=== PATIENT | female | born 2000 | race Caucasian/White ===

== ENCOUNTER 2020-12-03 13:45 | Outpatient (CLI) | payer MEDICAID, SELFPAY ==
[2020-12-03 14:00] VITALS: BP 121/85; PULSE 84
[2020-12-03 14:04] VITALS: TEMP 36.3
[2020-12-03 14:05] VITALS: BMI 24.3
[2020-12-03 14:15] VITALS: BP 117/79; PULSE 75
[2020-12-03 14:31] VITALS: BP 118/82; PULSE 70
[2020-12-03 14:41] VITALS: BP 118/82; PULSE 70; RESP 18; TEMP 36.3
[2020-12-04] VITALS (13 sets, daily range): BP systolic 98–127; BP diastolic 55–79; PULSE 50–78; TEMP 36.2–37
[2020-12-05] VITALS (33 sets, daily range): BP systolic 91–139; BP diastolic 50–87; PULSE 55–107; RESP 15–16; TEMP 36.2–36.7
[2020-12-06 04:00] VITALS: PULSE 56; RESP 16; TEMP 36.1
[2020-12-06 04:13] VITALS: BP 106/59; PULSE 56; TEMP 36.1
[2020-12-06 09:00] VITALS: BP 125/80; PULSE 86; RESP 17; TEMP 36.4
== END 2020-12-03 14:43 | disposition home or self-care (01) ==
LOC: OPOB 13:46 → OBGYN 12-04 08:31
PROVIDERS: PCP Family Medicine; Visit Provider Family Medicine
DX: O36.8190 Decreased fetal movements, unspecified trimester, not applicable or unspecified (principal); Z3A.00 Weeks of gestation of pregnancy not specified
CPT/HCPCS: 59025; 99211

== ENCOUNTER 2020-12-04 07:57 | Inpatient (IN) | payer MEDICAID, SELFPAY ==
[2020-12-04 08:18] VITALS: BP 118/78; PULSE 74; TEMP 36.3
[2020-12-04 09:42] VITALS: BMI 24.3
[2020-12-04 10:03] LABS: Basophils % 0.1 %; Eosinophils % 0.4 %; Hematocrit 34.3 % (37.0-47.0); Hemoglobin 11.9 g/dL (11.5-15.3); Lymphocytes # 1.4 10^3/uL (1.5-6.5); Lymphocytes % 18.8 %; Mean Corpuscular HGB Conc 34.7 g/dL (30.0-36.0); Mean Corpuscular Hemoglobin 30.6 pg (28.0-34.0); Mean Corpuscular Volume 88.2 fL (81-99); Mean Platelet Volume 11.4 fL (7.4-10.4); Monocytes # 0.5 10^3/uL (0.2-0.9); Monocytes % 7.3 %; Neutrophils # 5.23 10^3/uL (1.8-8.0); Nucleated Red Blood Cells % 0 %; Platelet Count 253 10^3/cmm (130-400); Red Blood Count 3.89 10^6/uL (4.1-5.3); Red Cell Distribution Width 13.4 % (12.1-15.1); White Blood Count 7.2 10^3/uL (4.5-13.0)
[2020-12-04] MEDS: miSOPROStol 100 mcg tablet 25 MCG VAGINAL ×3 (10:04→19:30)
[2020-12-04] MEDS: promethazine 25 mg/mL SDV 1 mL IM (21:35)
[2020-12-04] MEDS: morphine 4 mg/mL SDV 1 mL 8 MG IM (21:36)
[2020-12-05 01:48] VITALS: RESP 16
--- NOTE | 2020-12-05 01:50 | PM.DELIVERY ---
Delivery Note: Date of delivery: December 05, 2020 This 20-year-old 1 now para 1 female with an EDC of 11/29/2020 was admitted on the day of admission for misoprostol cervical ripening for postdates . She was given misoprostol 25 mcg x 3 doses. Sometime after the third dose the had a variable baseline sometimes in the 130s and sometimes down to 110's. That prompted fluid boluses followed by oxygen therapy. The oxygen seemed to improve things but this physician came in and evaluated. At that time she was found to be approximately 5 cm dilated and 0 station. She underwent artificial rupture membranes with a moderate amount of thick meconium stained fluid obtained. She very rapidly dilated to complete cervical dilatation and delivered by spontaneous vaginal delivery healthy, viable female at 11 13. Upon delivery the head the mouth and nose were suctioned followed by delivery of the remainder of the infant. There was no nuchal cord. After approximately 1 minute the maternal grandmother cut the infant cord. The umbilical cord had 3 blood vessels. The was suctioned more after delivery prior to laying on mother's abdomen. The infant was a little blue and stunned and therefore was brought over to the warmer where more stimulation was made followed by suctioning of approximately 8 mL of meconium fluid and blow-by oxygen. The was crying immediately after . Apgars were 7 and 9 at 1 and 5 minutes respectively. The weighed 6 pounds 7 ounces. There was a midline second-degree episiotomy with layered surgical closure using local anesthesia for the episiotomy and repair. Estimated blood loss approximately 187 mL. Pre-Delivery Course: This patient was followed by this physician beginning early in her and follow through the course without problems. Maternal blood type was O- with antibody screen negative. Hepatitis B, hepatitis C, RPR were negative. Rubella was immune and group B strep was negative as was Covid testing. The patient went postdates and discussion was made with the patient in the office regarding benefits and risks of misoprostol cervical ripening. She was admitted for cervical ripening for induction on the day of admission. Delivery: Spontaneous vaginal delivery. Post-Delivery Status: Patient will be followed for routine care. We will change orders as necessary. A&P Assessment and plan (1) Normal spontaneous vaginal delivery: Patient is doing well at this time. She will be followed with routine orders. Status: Acute Coding Level of Care Code Acute Department Coordinator for [facility] Fwd Diagnoses Normal spontaneous vaginal delivery O80
[2020-12-05] MEDS: lanolin oint 7 gm 1 APPLIC TOPICAL (04:28)
[2020-12-05] MEDS: benzocaine-menthol 78 gm Canister 1 SPRAY TOPICAL (04:30)
[2020-12-05] MEDS: prenatal vitamin Capsule 1 CAP PO (09:24)
[2020-12-05] MEDS: ibuprofen 800 mg tablet PO ×3 (09:24→22:16)
[2020-12-05] MEDS: docusate sodium 100 mg Capsule PO ×2 (09:24→17:12)
[2020-12-05 11:38] VITALS: BP 119/72; PULSE 70; RESP 15; TEMP 36.7
[2020-12-05 14:25] LABS: Hematocrit 30.9 % (37.0-47.0); Hemoglobin 10.3 g/dL (11.5-15.3); Mean Corpuscular HGB Conc 33.3 g/dL (30.0-36.0); Mean Corpuscular Hemoglobin 29.9 pg (28.0-34.0); Mean Corpuscular Volume 89.6 fL (81-99); Mean Platelet Volume 11.6 fL (7.4-10.4); Platelet Count 230 10^3/cmm (130-400); Red Blood Count 3.45 10^6/uL (4.1-5.3); Red Cell Distribution Width 13.4 % (12.1-15.1); White Blood Count 11.3 10^3/uL (4.5-13.0)
[2020-12-05 15:50] VITALS: BP 122/79; PULSE 72; RESP 16; TEMP 36.6
[2020-12-05 19:36] VITALS: BP 126/58; PULSE 65; RESP 16; TEMP 36.7
[2020-12-05 21:58] VITALS: BP 115/65; PULSE 56; RESP 15; TEMP 36.7
[2020-12-06 04:00] VITALS: BP 106/59; PULSE 56; RESP 16; TEMP 36.1
--- NOTE | 2020-12-06 07:25 | PM.OBGYDC ---
Discharge Providers BISCUIT PACKER Date of Admission: 12/04/20 07:57 Date of Discharge: 12/06/20 Attending Provider at Admission: Anurag Smith MD Attending Provider at Discharge: Anurag Smith MD Primary Care Provider: Vicki Villarreal DO Diagnoses at Discharge Discharge Diagnosis (1) Normal spontaneous vaginal delivery: Status: Acute Reason for Visit Reason for Visit: Induction Information Peripartum Data: Infant Delivery Method: Vaginal Physical Exam Narrative: EXAM NARRATIVE: Patient has done well throughout the day yesterday with just mild lochia and no other problems. She did receive RhoGam as infant's blood type was O+. Const: COMMON NORMALS: no acute distress, average body habitus and healthy appearing HENMT: COMMON NORMALS: moist oral mucous membranes Resp: COMMON NORMALS: normal respiratory effort, No retractions, No use of accessory muscles and clear to auscultation bilaterally AUSCULTATION: clear to auscultation bilaterally Cardio: COMMON NORMALS: regular rate and regular rhythm RATE: regular rate RHYTHM: regular rhythm GI: COMMON NORMALS: Normal to inspection, nondistended, normoactive bowel sounds present, Soft to palpation (Fundus is firm.) and non-tender PALPATION: Yes Soft to palpation (Fundus is firm.) Extremity: COMMON NORMALS: normal to inspection, full ROM, no calf tenderness and no pedal edema Neuro: COMMON NORMALS: moves all extremities, no focal motor deficits and no sensory deficits noted Psych: COMMON NORMALS: mental status grossly normal, Normal thought process present, cooperative and normal affect THOUGHT PROCESS: Normal thought process present Discharge Data Data Completed and Pending: Pending at discharge Category Date Time Status Complete Crossmat ch Routine Lab 12/04/20 09:00 Results Rho D Immune Glob ulin Routine Lab 12/04/20 09:00 Results Type and Screen R outine Lab 12/04/20 09:00 Results Labs from last 24 hours 12/05/20 12/05/20 12/04/20 13:35 13:35 09:00 WBC 11.3 RBC 3.45 L Hgb 10.3 L Hct 30.9 L MCV 89.6 MCH 29.9 MCHC 33.3 RDW 13.4 Plt Count 230 MPV 11.6 H Blood Type O Negative Rho(D) Type Negative Antibody Screen Negative Screen Negative Vitals: Last Vital Signs Temp 96.9 F L 12/06/20 04:00 Pulse 56 L 12/06/20 04:00 Resp 16 12/06/20 04:00 BP 106/59 12/06/20 04:00 Discharge Plan Discharge Patient Disposition: Home Condition: Stable Prescriptions: New ibuprofen 800 mg Tablet 800 mg PO TID Qty: 90 RF: 2 docusate sodium [DOK] 100 mg Capsule 100 mg PO BID Qty: 60 RF: 2 Continued + Iron 1 mg Tablet PO RF: 0 Discharge Orders: Discharge Order (Routine); Ordered 12/06/20 Ordered By: Anurag Smith Referrals: Anurag Smith MD [Physician] - 6 Weeks Discharge Diet: Usual diet Discharge Activity: Resume usual activity Discharge Attestations BISCUIT PACKER Time Spent in Discharge Care*: less than 30 min Specific Discharge Activities: Specific discharge activities: educating patient, documenting/other paperwork and evaluating patient/reviewing data Coding Level of Care Code Acute Medical Care Evaluation Specialist for [facility] Fwd Diagnoses Normal spontaneous vaginal delivery O80
[2020-12-06 09:00] VITALS: BP 125/80; PULSE 86; RESP 17; TEMP 36.4
[2020-12-06 09:01] VITALS: BP 125/80; PULSE 86; RESP 16; TEMP 36.4
== END 2020-12-06 10:10 | disposition home or self-care (01) | DRG 807 ==
PROVIDERS: Admitting Provider Family Medicine; PCP Family Medicine; Visit Provider Family Medicine
DX: O48.0 Post-term pregnancy (principal); Z37.0 Single live birth; Z3A.40 40 weeks gestation of pregnancy; O77.0 Labor and delivery complicated by meconium in amniotic fluid; O70.1 Second degree perineal laceration during delivery
CPT/HCPCS: 12345; 36415; 36430; 59409; 85025; 85027; 85460; 86850; 86900; 90384; 96372; 98960; J2270; J2550

== ENCOUNTER → 2022-08-25 08:25 | Outpatient (BNVA) | payer MEDICAID, SELFPAY | PROVIDERS: PCP Family Medicine; Visit Provider Nurse Practitioner Women's Health | DX: Z32.00 Encounter for pregnancy test, result unknown (principal); N92.6 Irregular menstruation, unspecified | CPT/HCPCS: 81025 ==

== ENCOUNTER → 2022-09-21 10:43 | Outpatient (BNVA) | payer MEDICAID, SELFPAY | PROVIDERS: PCP Family Medicine; Visit Provider Obstetrics & Gynecology | DX: Z36.87 Encounter for antenatal screening for uncertain dates (principal) | CPT/HCPCS: 76801 ==

== ENCOUNTER → 2022-09-25 09:00 | Outpatient (BNVA) | payer MEDICAID, SELFPAY | PROVIDERS: PCP Family Medicine; Visit Provider Obstetrics & Gynecology | DX: Z34.90 Encounter for supervision of normal pregnancy, unspecified, unspecified trimester (principal) | CPT/HCPCS: 80307; 81000; 85025; 86592; 86762; 86803; 86850; 86900; 87086; 87340; 87806 ==

== ENCOUNTER → 2022-10-12 10:50 | Outpatient (BNVA) | payer MEDICAID, SELFPAY | PROVIDERS: PCP Family Medicine; Visit Provider Obstetrics & Gynecology | DX: Z34.91 Encounter for supervision of normal pregnancy, unspecified, first trimester (principal) | CPT/HCPCS: 81000; 87491; 87591; 88175 ==

== ENCOUNTER → 2022-11-30 14:10 | Outpatient (BNVA) | payer MEDICAID, SELFPAY | PROVIDERS: PCP Family Medicine; Visit Provider Obstetrics & Gynecology | DX: Z34.00 Encounter for supervision of normal first pregnancy, unspecified trimester (principal) | CPT/HCPCS: 76805 ==

== ENCOUNTER → 2022-12-04 13:45 | Outpatient (BNVA) | payer MEDICAID, SELFPAY | PROVIDERS: PCP Family Medicine; Visit Provider Obstetrics & Gynecology | DX: Z34.90 Encounter for supervision of normal pregnancy, unspecified, unspecified trimester (principal) | CPT/HCPCS: 81000 ==

== ENCOUNTER → 2023-01-01 11:08 | Outpatient (BNVA) | payer MEDICAID, SELFPAY | PROVIDERS: PCP Family Medicine; Visit Provider Nurse Practitioner Women's Health | DX: O26.899 Other specified pregnancy related conditions, unspecified trimester (principal); Z67.91 Unspecified blood type, Rh negative | CPT/HCPCS: 81000; 82950 ==

== ENCOUNTER → 2023-01-13 15:25 | Outpatient (BNVA) | payer MEDICAID, SELFPAY | PROVIDERS: PCP Family Medicine; Visit Provider Obstetrics & Gynecology | DX: Z34.92 Encounter for supervision of normal pregnancy, unspecified, second trimester (principal) | CPT/HCPCS: 76816 ==

== ENCOUNTER → 2023-01-29 09:26 | Outpatient (BNVA) | payer MEDICAID, SELFPAY | PROVIDERS: PCP Family Medicine; Visit Provider Obstetrics & Gynecology | DX: Z34.90 Encounter for supervision of normal pregnancy, unspecified, unspecified trimester (principal) | CPT/HCPCS: 81000 ==

== ENCOUNTER → 2023-02-03 07:51 | Outpatient (BNVA) | payer MEDICAID, SELFPAY | PROVIDERS: PCP Family Medicine; Visit Provider Obstetrics & Gynecology | DX: O26.899 Other specified pregnancy related conditions, unspecified trimester (principal); Z67.91 Unspecified blood type, Rh negative | CPT/HCPCS: 86850 ==

== ENCOUNTER → 2023-02-12 10:09 | Outpatient (BNVA) | payer MEDICAID, SELFPAY | PROVIDERS: PCP Family Medicine; Visit Provider Obstetrics & Gynecology | DX: Z34.90 Encounter for supervision of normal pregnancy, unspecified, unspecified trimester (principal); R82.90 Unspecified abnormal findings in urine | CPT/HCPCS: 81000; 87086 ==

== ENCOUNTER → 2023-02-18 09:21 | Outpatient (BNVA) | payer MEDICAID, SELFPAY | PROVIDERS: PCP Family Medicine; Visit Provider Obstetrics & Gynecology | DX: Z34.90 Encounter for supervision of normal pregnancy, unspecified, unspecified trimester (principal) | CPT/HCPCS: 76816 ==

== ENCOUNTER → 2023-02-26 11:14 | Outpatient (BNVA) | payer MEDICAID, SELFPAY | PROVIDERS: PCP Family Medicine; Visit Provider Obstetrics & Gynecology | DX: Z34.90 Encounter for supervision of normal pregnancy, unspecified, unspecified trimester (principal) | CPT/HCPCS: 81000 ==

== ENCOUNTER → 2023-03-11 09:46 | Outpatient (BNVA) | payer MEDICAID, SELFPAY | PROVIDERS: PCP Family Medicine; Visit Provider Obstetrics & Gynecology | DX: Z34.90 Encounter for supervision of normal pregnancy, unspecified, unspecified trimester (principal) | CPT/HCPCS: 81000 ==

== ENCOUNTER → 2023-03-26 10:55 | Outpatient (BNVA) | payer MEDICAID, SELFPAY | PROVIDERS: PCP Family Medicine; Visit Provider Obstetrics & Gynecology | DX: Z34.90 Encounter for supervision of normal pregnancy, unspecified, unspecified trimester (principal) | CPT/HCPCS: 81000; 87081 ==

== ENCOUNTER 2023-04-01 07:53 | Outpatient (CLI) | payer MEDICAID, SELFPAY ==
--- NOTE | 2023-04-01 08:00 | US_ITS ---
WS: [id number] ULTRASOUND OB LIMITED TECHNIQUE: Limited ultrasound examination of the fetus. CLINICAL INFORMATION: Z34.90 - Encounter for supervision of normal , u... COMPARISON: Ultrasound February 18, 2023 FINDINGS: Closed cervix measures 3.2 cm Single interuterine gestation. presentation is vertex Placental location is anterior. Placenta grade: 2 heart rate 150 BPM. Anatomy: BDP: 9.1 cm = 37w0d HC: 32.2 cm = 36w2d AC: 31.6 cm = 35w4d FEMUR LENGTH: 7.1 cm = 36w1d Estimated weight: 2811 g; 6 lbs. 3 oz. Weight at the 45th percentile based on gestational age EGA by ultrasound: 36w2d HOWIE by ultrasound: 04/27/2023 US/US OB limited [id number] IMPRESSION: 1. Cervix long and closed measuring 3.2 cm 2. Vertex presentation with anterior placenta. 3. weight 6 lbs. 3 oz. at the 45th percentile based on gestational age 4. BPD today at the 67th percentile and head circumference at the 13th percent ile decreased compared to previous. Previously BPD greater than 98th percentile and head circumference at the 85th percentile. 5. Abdominal circumference at the 23rd percentile today compared to 66th perce ntile previous
== END 2023-04-01 07:54 | disposition home or self-care (01) ==
LOC: RAD 07:58
PROVIDERS: PCP Family Medicine; Visit Provider Obstetrics & Gynecology
DX: Z34.90 Encounter for supervision of normal pregnancy, unspecified, unspecified trimester (principal)
CPT/HCPCS: 76815; 81000; 87081

== ENCOUNTER → 2023-04-02 11:24 | Outpatient (BNVA) | payer MEDICAID, SELFPAY | PROVIDERS: PCP Family Medicine; Visit Provider Obstetrics & Gynecology | DX: Z34.90 Encounter for supervision of normal pregnancy, unspecified, unspecified trimester (principal) | CPT/HCPCS: 81000 ==

== ENCOUNTER → 2023-04-09 11:34 | Outpatient (BNVA) | payer MEDICAID, SELFPAY | PROVIDERS: PCP Family Medicine; Visit Provider Obstetrics & Gynecology | DX: Z34.90 Encounter for supervision of normal pregnancy, unspecified, unspecified trimester (principal) | CPT/HCPCS: 81000 ==

== ENCOUNTER → 2023-04-13 15:27 | Outpatient (BNVA) | payer MEDICAID, SELFPAY | PROVIDERS: PCP Family Medicine; Visit Provider Obstetrics & Gynecology | DX: Z34.90 Encounter for supervision of normal pregnancy, unspecified, unspecified trimester (principal) | CPT/HCPCS: 81000 ==

== ENCOUNTER 2023-04-16 21:09 | Inpatient (IN) | payer MEDICAID, SELFPAY ==
[2023-04-16 20:53] VITALS: BMI 23.6
[2023-04-16 21:09] VITALS: RESP 18
[2023-04-16] MEDS: miSOPROStol 100 mcg tablet 25 MCG VAGINAL (21:55)
[2023-04-16 22:39] VITALS: BP 101/65; PULSE 99
[2023-04-16 23:07] LABS: Basophils % 0.1 %; Eosinophils % 0.4 %; Hematocrit 32.6 % (37.0-47.0); Hemoglobin 10.9 g/dL (11.5-15.3); Lymphocytes # 1.7 10^3/uL (0.8-4.8); Lymphocytes % 20.6 %; Mean Corpuscular HGB Conc 33.4 g/dL (30.0-36.0); Mean Corpuscular Hemoglobin 29.3 pg (28.0-34.0); Mean Corpuscular Volume 87.6 fl (81-99); Mean Platelet Volume 11.6 fL (7.4-10.4); Monocytes # 0.5 10^3/uL (0.2-0.9); Monocytes % 5.6 %; Neutrophils # 6.07 10^3/uL (1.8-7.7); Neutrophils % 72.9 %; Nucleated Red Blood Cells % 0 %; Platelet Count 204 10^3/cmm (130-400); Red Blood Count 3.72 10^6/uL (4.1-5.3); Red Cell Distribution Width 14.4 % (12.1-15.1); White Blood Count 8.3 10^3/uL (4.0-10.0)
[2023-04-16 23:41] VITALS: BP 110/69; PULSE 71
[2023-04-17] VITALS (87 sets, daily range): BP systolic 90–128; BP diastolic 50–75; PULSE 47–88; RESP 16–17; TEMP 35.8–36.7; O2SAT 89–100
[2023-04-17] MEDS: miSOPROStol 100 mcg tablet 25 MCG VAGINAL (02:03)
[2023-04-17] MEDS: dextrose 5%-lactated ringers 1,000 ML 125 ML IV ×3 (13:00→23:56)
[2023-04-17] MEDS: fentaNYL 50 mcg/mL INJ 2mL IVP ×2 (17:01→18:24)
[2023-04-17] MEDS: lactated ringers 1,000 ML 999 ML IV (18:20)
--- NOTE | 2023-04-17 19:52 | ANES.PREANE2 ---
Pre-Anesthetic Assessment Height/Weight: Height 1.75 m Weight 72.575 kg Temp Pulse Resp BP Pulse Ox O2 Del Method 96.4 F L 60 17 102/56 100 Room Air 04/17/23 19:23 04/17/23 19:47 04/17/23 18:24 04/17/23 19:47 04/17/23 19:45 04/16/23 20:53 Preop Diagnosis: labor epidural Familial anesthetic complications: none Was Beta [place] taken within 24 hours: N/A Was Clonidine taken within 24 hours: N/A Last Intake: 12:00 Social No alcohol and No tobacco Exam alert, oriented x 3, clear to auscultation bilaterally and regular rate & rhythm Airway Submandibular: within normal limits Cervical ROM: within normal limits Mallampati: Class II Dentition: full Pulmonary None reported CV/HEM None reported None reported Hepatic None reported GI None reported Metabolic None reported Musc/skel None reported Neuropsych None reported Anesthetic Plan ASA status: 2 Anesthesia: Regional (specify below) (epidural) Risk of > 500 ml blood loss (7ml/kg in children): Yes, adequate IV access and fluids planned Medications/Allergies Home Medications Medication Instructions Recorded Confirmed Last Taken Type prenat.vits,masoud,jsa-[id number] 1 tab PO DAILY 08/25/22 04/13/23 Unknown History Allergies Allergy/AdvReac Type Severity Reaction Status Date / Time No Known Allergies Allergy Verified 04/13/23 15:34 Current Medications Generic Name Dose Route Start Last Admin Trade Name Freq PRN Reason Stop Dose Admin Fentanyl 25 - 100 mcg 04/16/23 21:09 04/17/23 18:24 Fentanyl 50 Mcg/Ml Inj 2ml IVP 50 mcg Q1H PRN Administration SEVERE PAIN Dextrose/Lactated Ringer's 1,000 mls @ 125 mls/hr 04/16/23 21:09 04/17/23 19:22 Dextrose 5%-Lactated Ringers IV 125 mls/hr .Q8H PRN Administration per label comments Oxytocin 30 unit in 500 mls @ 1 mls/hr 04/17/23 12:15 04/17/23 13:08 Pitocin IV Not Given .Q24H GENOVEVA Protocol 1 MILLIUNIT/MIN Oxytocin 30 unit/ Sodium 503 mls @ 1 mls/hr 04/17/23 12:15 04/17/23 18:23 Chloride IV 8 mls/hr .Q24H GENOVEVA 8 mls/hr Titration Protocol Lactated Ringer's 1,000 mls @ 999 mls/hr 04/17/23 17:11 04/17/23 19:25 Lactated Ringers IV Infused .Q1H1M PRN Infusion See label comments Ropivacaine 100 mg in 50 mls @ 10 mls/hr 04/17/23 17:15 04/17/23 19:45 Naropin Syringe EPIDURAL 13 mls/hr .Q5H GENOVEVA Administration PFSH Anesthesia Medical History No pertinent past medical history neghx: htn,dm,thyroid,dvt/pe PCP: [facility] Surgical History No pertinent past surgical history Family History Mother Cervical cancer dx age 22-23 Denies family history of Colon cancer Ovarian cancer Diabetes Heart disease Hypercholesteremia Breast cancer Hypertension Uterine cancer Thyroid disease Stroke Female Reproductive History : 2 Data Anesthesia 04/16/23 21:30 Short CBC 04/16/23 Range/Units 21:30 WBC 8.3 (4.0-10.0) 10^3/uL Hgb 10.9 L (11.5-15.3) g/dL Hct 32.6 L (37.0-47.0) % MCV 87.6 (81-99) fl Plt Count 204 (130-400) 10^3/cmm Neut % (Auto) 72.9 % Neut # (Auto) 6.07 (1.8-7.7) 10^3/uL Cardiac Studies: No Data to Display
--- NOTE | 2023-04-17 19:54 | ANES.PROC ---
Anesthesia Procedures Procedure/Date: 04/17/23 Epidural: Time Out Performed: Yes Consents Signed: Procedure Consent and NPO Consent Consent: requested by attending/covering physician, from patient, risks and benefits reviewed and patient agrees to proceed Lumbar Level: L3-L4 Epidural position: sitting Epidural procedure: sterile prep of area (betadine), 1% lidocaine to numb the area (3ml), 18 g needle, negative for paresthesia passed, neg for paresthesia, test dose given, 1.5% xylocaine 1:200k epi (3ml/2ml), 0.2% Ropivacaine bolus ml (5ml), placed PCEA, no systemic response, sterile dressing applied, L.U.D. no apparent complications and 0.2% Ropiavacaine @ mls/hr (13ml/hr)
[2023-04-18] VITALS (14 sets, daily range): BP systolic 97–122; BP diastolic 53–77; PULSE 46–70; RESP 16–18; TEMP 36.3–37.2; O2SAT 98–99
[2023-04-18] MEDS: benzocaine-menthol 78 gm Canister 1 SPRAY TOPICAL (03:27)
[2023-04-18] MEDS: HYDROcodone-acetaminophen 5-325 mg Tablet PO (03:27)
[2023-04-18] MEDS: ibuprofen 800 mg tablet PO ×3 (09:19→20:18)
[2023-04-18] MEDS: docusate sodium 100 mg Capsule PO ×2 (09:19→17:53)
[2023-04-18] MEDS: prenatal vitamin Capsule 1 CAP PO (09:19)
--- NOTE | 2023-04-18 09:31 | PM.DELIVERY ---
Delivery Note: Date of delivery: April 17, 2023 Pre-delivery diagnoses: 39 weeks gestation elective induction of labor Post-delivery diagnoses: same Vaginal delivery Procedure: Labor induction Vaginal delivery Op report anesthesia: Epidural Delivering Physician: Damon Pastor MD Estimated blood loss (mL): 300 Findings: vigorous male normal placenta and cord Cord gases and blood obtained no episiotomy first-degree perineal laceration repaired Delivery: Vaginal delivery Post-Delivery Status: Good History History History 2 Term 1 0 Miscarriages/Ectopic 0 Living Children 1 A&P Assessment and plan (1) Term delivered: Coding Level of Care Code Acute Code for [facility] Fwd Diagnoses Term delivered O80 Time Spent (min) 60
--- NOTE | 2023-04-18 10:54 | P.HP_ITS ---
Providers/Chief Complaint Admitting Physician: Damon Pastor MD Primary Care Provider: Vicki Villarreal DO Chief Complaint: induction of labor HPI ORNAMENT SETTER History of Present Illness Jai Soares is a 22 year old female 22 y.o. G 2 P1 EDC April 22, 2023 No complications Admitted for elective induction of labor No c/o + active movements Present Details : 2 Para: 1 Labs Rubella: Immune RPR: Negative GBS: Negative Other Lab Information: Rh negative Medications/Allergies Home Medications Medication Instructions Recorded Confirmed Last Taken Type prenat.vits,masoud,zbi-gwtd-wrbed 1 tab PO DAILY 08/25/22 04/13/23 Unknown History Allergies Allergy/AdvReac Type Severity Reaction Status Date / Time No Known Allergies Allergy Verified 04/13/23 15:34 PFSH ORNAMENT SETTER PFSH: Medical History No pertinent past medical history neghx: htn,dm,thyroid,dvt/pe PCP: [facility] Surgical History No pertinent past surgical history Family History Mother Cervical cancer dx age 22-23 Denies family history of Colon cancer Ovarian cancer Diabetes Heart disease Hypercholesteremia Breast cancer Hypertension Uterine cancer Thyroid disease Stroke History History History 2 Term 1 0 Miscarriages/Ectopic 0 Living Children 1 Care HOWIE Calculator Estimated Delivery Date Method Current WG Current Estimate 04/22/23 LMP (Certain) 39w 3d Other Estimates 04/21/23 Ultrasound #1 39w 4d Specific Issues/Plans * O NEGATIVE blood type * LIMITED SPINE VIEWS; rpt at 24-26 wks * repeat ob sono done 01-13-23 showed good visualization of spine; good interval growth Vitals/I&O/Wt Last Vital Signs Temp 99.0 F 04/18/23 09:26 Pulse 46 L 04/18/23 09:26 Resp 17 04/18/23 09:26 BP 107/69 04/18/23 09:26 Pulse Ox 98 04/18/23 09:26 O2 Del Method Room Air 04/18/23 09:26 04/17/23 04/18/23 04/18/23 22:59 06:59 14:59 Intake Total 2443.267 / 2450.267 1295.399 / 3745.666 Balance 2443.267 / 2450.267 1295.399 / 3745.666 Weight last 48 hrs Weight 160 lb Physical Exam Const: COMMON NORMALS: no acute distress, patient oriented x3 and alert Resp: COMMON NORMALS: normal respiratory effort and clear to auscultation bilaterally Cardio: COMMON NORMALS: regular rate GI: COMMON NORMALS: Normal to inspection, nondistended, normoactive bowel sounds present, Soft to palpation and non-tender : OTHER: Cervix: 1 cm / 50% / -2 Extremity: COMMON NORMALS: normal to inspection Urinary Catheter Management: Iglesias: Cath Placed During This Visit: yes, but has since been removed by the nurse Reason for Continuing Indwelling Catheter: Decision to DC Catheter Urinary Catheter Date of Insertion: 04/17/23 Urinary Catheter Time of Insertion: 20:45 Date Urinary Catheter Removed: 04/17/23 Time Urinary Catheter Discontinued: 21:34 Data 04/16/23 21:30 A&P Assessment and plan (1) 39 weeks gestation of : fetus reassuring (2) Elective induction of labor planned: plan cytotec 25 ug intravaginal Attestations Medical Necessity Statement*: patient at 39 w 1 d, admit for elective induction of labor Coding Level of Care Code Acute Code for [facility] Fwd Diagnoses 39 weeks gestation of Z3A.39 Elective induction of labor planned Time Spent (min) 30
--- NOTE | 2023-04-18 10:59 | PM.OBGYDC ---
Discharge Providers TUNNEL HEADING INSPECTOR Date of Admission: 04/16/23 21:09 Date of Discharge: 04/18/23 Attending Provider at Admission: Damon Pastor MD Attending Provider at Discharge: Damon Pastor MD Primary Care Provider: Vicki Villarreal DO Diagnoses at Discharge Discharge Diagnosis (1) 39 weeks gestation of : Status: Acute (2) Elective induction of labor planned: Details from hospital stay: patient underwent induction of labor Had vaginal delivery with vigorous male no complications Status: Acute Reason for Visit Reason for Visit: induction of labor Hospital Course Hospital Course patient did well discharged to home on day #1 Information Peripartum Data: Infant Delivery Method: Vaginal Laceration description: Perineal - 1st Degree Physical Exam Const: COMMON NORMALS: no acute distress, patient oriented x3 and alert Resp: COMMON NORMALS: normal respiratory effort Cardio: COMMON NORMALS: regular rate and regular rhythm RATE: regular rate RHYTHM: regular rhythm GI: COMMON NORMALS: Normal to inspection, nondistended, normoactive bowel sounds present, Soft to palpation and non-tender PALPATION: Yes Soft to palpation Extremity: COMMON NORMALS: normal to inspection Neuro: COMMON NORMALS: patient oriented x3 SENSORIUM/ORIENTATION: Yes alert Urinary Catheter Management: Iglesias: Cath Placed During This Visit: yes, but has since been removed by the nurse Reason for Continuing Indwelling Catheter: Decision to DC Catheter Urinary Catheter Date of Insertion: 04/17/23 Urinary Catheter Time of Insertion: 20:45 Date Urinary Catheter Removed: 04/17/23 Time Urinary Catheter Discontinued: 21:34 History History History 2 Term 1 0 Miscarriages/Ectopic 0 Living Children 1 Discharge Data Studies Completed and Pending Pending at discharge Category Date Time Status Complete Crossmatch Routine Lab 04/16/23 21:30 Received Maternal Hemorrhage Scrn Routine Lab 04/18/23 09:30 Ordered Hemagram Timed Lab 04/18/23 10:45 Uncollected Rho D Immune Globulin Routine Lab 04/16/23 21:30 Received Type and Screen Routine Lab 04/16/23 21:30 Received Laboratory Results WBC 8.3 10^3/uL (4.0-10.0) 04/16/23 21:30 RBC 3.72 10^6/uL (4.1-5.3) L 04/16/23 21:30 Hgb 10.9 g/dL (11.5-15.3) L 04/16/23 21: Hct 32.6 % (37.0-47.0) L 04/16/23 21: MCV 87.6 fl (81-99) 04/16/23 21: MCH 29.3 pg (28.0-34.0) 04/16/23 21: MCHC 33.4 g/dL (30.0-36.0) 04/16/23: RDW 14.4 % (12.1-15.1) 04/16/23: Plt Count 204 10^3/cmm (130-400) 04/16/23 21: MPV 11.6 fL (7.4-10.4) H 04/16/23 21: Neut % (Auto) 72.9 % 04/16/23: Lymph % (Auto) 20.6 % 04/16/23 21: [place] % (Auto) 5.6 % 04/16/23: Eos % (Auto) 0.4 % 04/16/23 21: Baso % (Auto) 0.1 % 04/16/23: Neut # (Auto) 6.07 10^3/uL (1.8-7.7) 04/16/23: Lymph # (Auto) 1.7 10^3/uL (0.8-4.8) 04/16/23: [place] # (Auto) 0.5 10^3/uL (0.2-0.9) 04/16/23: Eos # (Auto) 0.0 10^3/uL (0.0-0.8) 04/16/23: Baso # (Auto) 0.0 10^3/uL (0.0-0.1) 04/16/23: Nucleated RBC % (auto) 0 % 04/16/23: Nucleated RBCs # 0.0 /100WBC 04/16/23 21: Procedures Performed labor induction Vaginal delivery repair of first-degree perineal laceration Vitals Last Vital Signs Temp 99.0 F 04/18/23 09:26 Pulse 46 L 04/18/23 09:26 Resp 17 04/18/23 09:26 BP 107/69 04/18/23 09:26 Pulse Ox 98 04/18/23 09:26 O2 Del Method Room Air 04/18/23 09:26 Discharge Plan Discharge Patient Disposition: Home Condition: Stable Prescriptions: Continued prenat.vits,masoud,ubp-oyud-lrbug Tablet 1 tab PO DAILY Discharge Orders: Discharge Order (Routine); Ordered 04/18/23 Ordered By: Damon Pastor Discharge Diet: Usual diet Discharge Activity: Resume usual activity Patient Instructions: Opioid Safety Discharge Attestations TUNNEL HEADING INSPECTOR Time Spent in Discharge Care*: less than 30 min Coding Level of Care Code Acute Code for [facility]g Fwd Diagnoses 39 weeks gestation of Z3A.39 Elective induction of labor planned Time Spent (min) 25
[2023-04-18 11:46] LABS: Hematocrit 28.8 % (37.0-47.0); Hemoglobin 9.6 g/dL (11.5-15.3); Mean Corpuscular HGB Conc 33.3 g/dL (30.0-36.0); Mean Corpuscular Hemoglobin 29.5 pg (28.0-34.0); Mean Corpuscular Volume 88.6 fl (81-99); Mean Platelet Volume 11.2 fL (7.4-10.4); Platelet Count 176 10^3/cmm (130-400); Red Blood Count 3.25 10^6/uL (4.1-5.3); Red Cell Distribution Width 14.4 % (12.1-15.1); White Blood Count 8.1 10^3/uL (4.0-10.0)
--- NOTE | 2023-04-19 08:00 | ANE.PACU2 ---
Inpatient post-anesthesia follow up: Airway intact: Yes Vital signs: Temperature 98 F Pulse Rate 52 Respiratory Rate 18 Blood Pressure 112/71 Pulse Oximetry 99 Oxygen Delivery Me thod Room Air Oxygen Flow Rate Fraction of Inspir ed Oxygen Hydration adequate: Yes Nausea and vomiting: Yes Pain level: 1 Mental status: Baseline
== END 2023-04-18 22:33 | disposition home or self-care (01) | DRG 807 ==
LOC: OPOB 04-18 07:39 → OBGYN 04-18 07:39
PROVIDERS: Admitting Provider Obstetrics & Gynecology; PCP Family Medicine; Visit Provider Obstetrics & Gynecology
DX: O70.0 First degree perineal laceration during delivery (principal); Z37.0 Single live birth; Z3A.39 39 weeks gestation of pregnancy
CPT/HCPCS: 36415; 36430; 51702; 59025; 59409; 85025; 85027; 85460; 86850; 86900; 90384; 99211; J2795; J3010; J7040; J7120; J7121

== ENCOUNTER 2023-10-20 10:35 | Outpatient (CLI) | payer MEDICAID, SELFPAY ==
--- NOTE | 2023-10-20 | XRR_ITS ---
PROCEDURE INFORMATION: Exam: XR Left Wrist Exam date and time: 10/20/2023 10:53 AM Age: 23 years old Clinical indication: Pain; Wrist; Left TECHNIQUE: Imaging protocol: Radiologic exam of the left wrist. Views: 1 or 2 views. COMPARISON: No relevant prior studies available. FINDINGS: Bones/joints: The carpal bones maintain normal alignment. No dislocation identified. No abnormality at the radiocarpal or ulnocarpal joints. No fracture identified. Soft tissues: Unremarkable. XR/XR wrist LT 2V [id number] IMPRESSION: No evidence of fracture or dislocation.
--- NOTE | 2023-10-20 | XRR_ITS ---
PROCEDURE INFORMATION: Exam: XR Right Wrist Exam date and time: 10/20/2023 10:53 AM Age: 23 years old Clinical indication: Pain; Wrist; Right TECHNIQUE: Imaging protocol: Radiologic exam of the right wrist. Views: 1 or 2 views. COMPARISON: No relevant prior studies available. FINDINGS: Bones/joints: The carpal bones maintain normal alignment. No dislocation identified. No abnormality at the radiocarpal or ulnocarpal joints. No fracture identified. Soft tissues: Unremarkable. XR/XR wrist RT 2V [id number] IMPRESSION: No evidence of fracture or dislocation.
== END 2023-10-20 10:36 | disposition home or self-care (01) ==
LOC: RAD 10:36
PROVIDERS: PCP Family Medicine; Visit Provider Nurse Practitioner Family
DX: M25.532 Pain in left wrist (principal); M25.531 Pain in right wrist
CPT/HCPCS: 73100

== ENCOUNTER → 2024-12-28 15:38 | Outpatient (BNVA) | payer MEDICAID, SELFPAY | PROVIDERS: PCP Family Medicine; Visit Provider Nurse Practitioner Women's Health | DX: Z87.42 Personal history of other diseases of the female genital tract (principal); Z01.419 Encounter for gynecological examination (general) (routine) without abnormal findings | CPT/HCPCS: 80053; 82306; 83036; 84443; 85025; 87624 ==